=== PATIENT | female | born 1985 | race Caucasian/White ===

== ENCOUNTER → 2018-02-07 | Outpatient (CLI) | payer BC, OTHER | END | disposition home or self-care (01) | LOC: CFH 09:57 | PROVIDERS: ATTEND Nurse Practitioner Primary Care | DX: I95.9 Hypotension, unspecified (principal); R00.2 Palpitations; R06.02 Shortness of breath; R55 Syncope and collapse; R07.9 Chest pain, unspecified | CPT/HCPCS: 93306 ==

== ENCOUNTER 2018-09-27 14:20 | Inpatient (IN) | payer OTHER ==
[~2018-09-27] VITALS: Ht 170.2 cm; Wt 82.7 kg
[2018-09-27 14:58] LABS: MICROSCOPIC INDICATED
[2018-09-27 16:35] LABS: BASOPHILS # (AUTO) 0.04 x10^3/uL (0-0.1); BASOPHILS % (AUTO) 1 % (0-1); EOSINOPHILS # (AUTO) 0.01 x10^3/uL (0-0.4); EOSINOPHILS % (AUTO) 0 % (1-7); LYMPHOCYTES # (AUTO) 2.03 x10^3/uL (1-3.4); LYMPHOCYTES % (AUTO) 22 % (22-44); MD NO; MEAN CORPUSCULAR HEMOGLOBIN 28.3 pg (27.0-34.8); MEAN CORPUSCULAR VOLUME 85.7 fL (80-100); MEAN PLATELET VOLUME 8.5 fL (7.4-10.4); MONOCYTES # (AUTO) 0.43 x10^3/uL (0.2-0.8); MONOCYTES % (AUTO) 5 % (2-9); NEUTROPHILS # (AUTO) 6.76 x10^3/uL (1.8-6.8); NEUTROPHILS % (AUTO) 73 % (42-75); PLATELET COUNT 264 x10^3/uL (130-400); RED BLOOD COUNT 4.61 x10^6/uL (3.82-5.3); RED CELL DISTRIBUTION WIDTH 17.6 % (9.6-15.2)
[2018-09-27 16:42] LABS: ALANINE AMINOTRANSFERASE 18 U/L (12-78); ALBUMIN 2.9 g/dL (3.4-5.0); ANION GAP 9 mmol/L (5-15); CALCIUM 9.1 mg/dL (8.5-10.1); CHLORIDE 105 mmol/L (98-107); CREATININE 0.87 mg/dL (0.55-1.02)
[2018-09-27 16:43] LABS: BILIRUBIN, DIRECT < 0.1 mg/dL (0.1-0.2)
[2018-09-27 16:44] LABS: ALKALINE PHOSPHATASE 149 U/L (45-117); BILIRUBIN,TOTAL 0.2 mg/dL (0.2-1.0); TOTAL PROTEIN 6.9 g/dL (6.4-8.2)
[2018-09-27 20:26] VITALS: BP 120/76
[2018-09-28] MEDS ORDERED: LACTATED RINGERS 1,000 ML IV SCH ×2 (00:37→06:00)
[2018-09-28] MEDS ORDERED: OXYTOCIN 30U/ 0.9% NaCL 500ML 500 ML IV SCH (00:37)
[2018-09-28] MEDS ORDERED: SODIUM CITRATE/CITRIC ACID 30 ML UDC PO ONE (01:00)
[2018-09-28] MEDS ORDERED: LACTATED RINGERS 1,000 ML IVBOLUS ONE (01:00)
[2018-09-28] MEDS ORDERED: ONDANSETRON 2MG/ML, 2ML IVPush ONE (01:00)
[2018-09-28] MEDS ORDERED: METOCLOPRAMIDE 5 MG/ML, 2ML IV ONE (01:00)
[2018-09-28] MEDS ORDERED: METOCLOPRAMIDE 5 MG/ML, 2ML ONE (06:12)
[2018-09-28] MEDS ORDERED: SODIUM CITRATE/CITRIC ACID 30 ML UDC ONE (06:12)
[2018-09-28] MEDS ORDERED: OXYTOCIN 30U/ 0.9% NaCL 500ML 500 ML ONE (06:13)
[2018-09-28 06:16] LABS: BASOPHILS # (AUTO) 0.03 x10^3/uL (0-0.1); BASOPHILS % (AUTO) 0 % (0-1); EOSINOPHILS # (AUTO) 0.01 x10^3/uL (0-0.4); EOSINOPHILS % (AUTO) 0 % (1-7); LYMPHOCYTES # (AUTO) 2.16 x10^3/uL (1-3.4); LYMPHOCYTES % (AUTO) 30 % (22-44); MD NO; MEAN CORPUSCULAR HGB CONC 33.6 g/dL (32.4-35.8); MEAN CORPUSCULAR VOLUME 86.3 fL (80-100); MEAN PLATELET VOLUME 8.4 fL (7.4-10.4); MONOCYTES # (AUTO) 0.37 x10^3/uL (0.2-0.8); MONOCYTES % (AUTO) 5 % (2-9); NEUTROPHILS # (AUTO) 4.75 x10^3/uL (1.8-6.8); NEUTROPHILS % (AUTO) 65 % (42-75); PLATELET COUNT 265 x10^3/uL (130-400); RED BLOOD COUNT 4.42 x10^6/uL (3.82-5.3); RED CELL DISTRIBUTION WIDTH 17.7 % (9.6-15.2)
[2018-09-28] MEDS ORDERED: WATER-INJECTION,STERILE 10 ML IV ONE (07:35)
[2018-09-28] MEDS ORDERED: ONDANSETRON 2MG/ML, 2ML ONE ×2 (07:35→11:17)
[2018-09-28] MEDS ORDERED: morphine SULFATE/PF 0.5 MG/ML, 10ML ONE (07:35)
[2018-09-28] MEDS ORDERED: CEFAZOLIN 1,000 MG ONE (07:35)
[2018-09-28] MEDS ORDERED: OXYTOCIN 10 UNITS/ML, 1ML ONE (07:35)
[2018-09-28] MEDS ORDERED: DEXAMETHASONE 4 MG/ML, 1ML ONE (07:35)
[2018-09-28] MEDS ORDERED: PHENYLEPHRINE 10 MG/ML ONE (07:56)
[2018-09-28] MEDS ORDERED: SODIUM CHLORIDE 0.9% PF 10ML ONE (07:56)
[2018-09-28] MEDS ORDERED: OXYcodone/APAP 5/325MG TABLET ONE (09:55)
[2018-09-28] MEDS: OXYcodone/APAP 5/325MG TABLET PO PRN ×3 (09:57→22:10)
[2018-09-28 10:40] VITALS: BP 118/77
[2018-09-28] MEDS: LACTATED RINGERS 1,000 ML IV SCH ×4 (11:09→21:09)
[2018-09-28] MEDS: OXYTOCIN 30U/ 0.9% NaCL 500ML 500 ML IV SCH ×2 (11:09→21:09)
[2018-09-28] MEDS ORDERED: METHYLERGONOVINE 0.2 MG/ML IM PRN (11:30)
[2018-09-28] MEDS ORDERED: DIPH,PERTUSS(ACELL),TET VAC/PF NC IM-VACC PRN (11:30)
[2018-09-28] MEDS: PRENATAL VIT/IRON/FA 1 EACH TABLET PO SCH (11:30)
[2018-09-28] MEDS ORDERED: METOCLOPRAMIDE 5 MG/ML, 2ML IV PRN (11:30)
[2018-09-28] MEDS ORDERED: MORPHINE SULFATE 4 MG/ML, 1ML IVPush PRN (11:30)
[2018-09-28] MEDS ORDERED: MISOPROSTOL 200 MCG TABLET PR PRN (11:30)
[2018-09-28] MEDS ORDERED: EPHEDRINE 50 MG/ML, 1ML IVPush PRN (11:30)
[2018-09-28] MEDS ORDERED: CARBOPROST TROMETHAMINE 250 MCG/ML, 1ML IM PRN (11:30)
[2018-09-28] MEDS ORDERED: OXYcodone IR 5MG TABLET PO PRN (11:30)
[2018-09-28] MEDS: ONDANSETRON 2MG/ML, 2ML IV PRN ×2 (11:34→18:15)
[2018-09-28] MEDS ORDERED: DIPHENHYDRAMINE 50 MG/ML, 1ML IVPush PRN (12:00)
[2018-09-28] MEDS ORDERED: ONDANSETRON 2MG/ML, 2ML IV PRN (12:00)
[2018-09-28 15:00] VITALS: BP 106/70
[2018-09-28 17:19] LABS: MEAN CORPUSCULAR HEMOGLOBIN 28.4 pg (27.0-34.8); MEAN CORPUSCULAR HGB CONC 33.1 g/dL (32.4-35.8); MEAN CORPUSCULAR VOLUME 85.9 fL (80-100); PLATELET COUNT 249 x10^3/uL (130-400); RED BLOOD COUNT 4.33 x10^6/uL (3.82-5.3); RED CELL DISTRIBUTION WIDTH 17.9 % (9.6-15.2)
[2018-09-28 18:14] LABS: MD YES
[2018-09-28 18:24] LABS: BAND#(MANUAL) 0.14 x10^3/uL; BANDS%(MANUAL) 1 % (0-7); LYMPH#(MANUAL) 1.14 x10^3/uL (1-3.4); LYMPHS% (MANUAL) 8 % (22-44); MONOS#(MANUAL) 0.29 x10^3/uL (0.3-2.7); MONOS% (MANUAL) 2 % (2-9); SEG#(MANUAL) 12.73 x10^3/uL (1.8-6.8); SEGS% (MANUAL) 89 % (42-75)
[2018-09-28 18:25] LABS: <PLATELET ESTIMATE> ADEQUATE; ANISOCYTOSIS 1+
[2018-09-28 18:26] LABS: <PLT MORPHOLOGY> NORMAL PLT MORPH
[2018-09-28 19:50] VITALS: BP 97/61
[2018-09-29 00:15] VITALS: BP 99/64
[2018-09-29] MEDS: OXYcodone/APAP 5/325MG TABLET PO PRN ×2 (02:29→06:20)
[2018-09-29] MEDS: LACTATED RINGERS 1,000 ML IV SCH ×3 (03:09→11:09)
[2018-09-29 04:30] VITALS: BP 106/69
[2018-09-29] MEDS: OXYTOCIN 30U/ 0.9% NaCL 500ML 500 ML IV SCH (07:09)
[2018-09-29 07:10] VITALS: BP 102/64
[2018-09-29] MEDS: PRENATAL VIT/IRON/FA 1 EACH TABLET PO SCH (10:32)
[2018-09-29] MEDS: DOCUSATE 100 MG CAPSULE PO PRN ×2 (10:32→19:37)
[2018-09-29] MEDS: ACETAMINOPHEN 325 MG TABLET PO PRN ×4 (10:33→23:33)
[2018-09-29] MEDS: OXYcodone IR 5MG TABLET PO PRN ×4 (10:33→23:32)
[2018-09-29] MEDS ORDERED: morphine SULFATE 10 MG/ML, 1ML IVPush PRN ×2 (11:30)
[2018-09-29] MEDS ORDERED: morphine SULFATE 10 MG/ML, 1ML ONE (11:31)
[2018-09-29 19:45] VITALS: BP 112/67
[2018-09-29] MEDS: SIMETHICONE 80 MG CHEW TAB PO PRN (23:33)
[2018-09-29] MEDS: CALCIUM CARBONATE 500 MG TAB.CHEW PO PRN (23:42)
[2018-09-30] MEDS ORDERED: BISACODYL 10 MG SUPP PR PRN (00:30)
[2018-09-30] MEDS: SIMETHICONE 80 MG CHEW TAB PO PRN ×4 (04:55→21:56)
[2018-09-30] MEDS: ACETAMINOPHEN 325 MG TABLET PO PRN (04:55)
[2018-09-30] MEDS: OXYcodone IR 5MG TABLET PO PRN ×2 (04:55→08:24)
[2018-09-30] MEDS: DOCUSATE 100 MG CAPSULE PO PRN (08:23)
[2018-09-30] MEDS: CALCIUM CARBONATE 500 MG TAB.CHEW PO PRN (08:23)
[2018-09-30] MEDS: PRENATAL VIT/IRON/FA 1 EACH TABLET PO SCH (08:23)
[2018-09-30 08:25] VITALS: BP 127/67
[2018-09-30] MEDS: OXYcodone/APAP 10/325MG TABLET PO PRN ×3 (12:57→21:52)
[2018-09-30 19:53] VITALS: BP 127/82
[2018-10-01] MEDS: OXYcodone/APAP 10/325MG TABLET PO PRN ×6 (01:06→21:45)
[2018-10-01] MEDS: PRENATAL VIT/IRON/FA 1 EACH TABLET PO SCH (07:17)
[2018-10-01] MEDS: SIMETHICONE 80 MG CHEW TAB PO PRN ×3 (07:17→19:58)
[2018-10-01] MEDS: DOCUSATE 100 MG CAPSULE PO PRN ×2 (07:17→19:58)
[2018-10-01 08:05] VITALS: BP 97/61
[2018-10-01 20:00] VITALS: BP 101/65
[2018-10-02] MEDS: OXYcodone/APAP 10/325MG TABLET PO PRN ×4 (01:46→15:44)
[2018-10-02] MEDS: SIMETHICONE 80 MG CHEW TAB PO PRN ×2 (01:46→10:15)
[2018-10-02 07:45] VITALS: BP 110/70
[2018-10-02] MEDS ORDERED: OXYC-302 PO (09:09)
[2018-10-02] MEDS: DOCUSATE 100 MG CAPSULE PO PRN (10:14)
[2018-10-02] MEDS: PRENATAL VIT/IRON/FA 1 EACH TABLET PO SCH (10:15)
== END 2018-10-02 18:10 | disposition home or self-care (01) | DRG 787 ==
LOC: LDOP 14:20 → OBSVTOIN 16:22 → LDIP 16:22 → 2NW 09-28 10:53
PROVIDERS: ADMIT Obstetrics & Gynecology; ATTEND Obstetrics & Gynecology
PROC: 10D00Z1 Extraction of Products of Conception, Low, Open Approach (ICD-10-PCS; principal; 2018-09-28)
DX: O32.1XX0 Maternal care for breech presentation, not applicable or unspecified (principal); Q79.6 Ehlers-Danlos syndromes; Z3A.40 40 weeks gestation of pregnancy; Z37.0 Single live birth; Z80.0 Family history of malignant neoplasm of digestive organs; Z83.3 Family history of diabetes mellitus; Z91.041 Radiographic dye allergy status; Z88.8 Allergy status to other drugs, medicaments and biological substances; Z91.018 Allergy to other foods; O75.89 Other specified complications of labor and delivery; H54.61 Unqualified visual loss, right eye, normal vision left eye
CPT/HCPCS: 36415; 70450; 70544; 76815; 80053; 81001; 82248; 84550; 85025; 86850; 86900; G0378; J0690; J1100; J2274; J2405; J2270; J2370; J2590; J2765; J7120